=== PATIENT | male | born 1980 | race American Indian/Alaskan Native ===

== ENCOUNTER 2020-08-22 01:59 | Emergency (ER) | payer SELFPAY ==
[2020-08-22] MEDS ORDERED: ONDANSETRON 4 MG/2 ML INJ ONE (16:54)
[2020-08-22] MEDS ORDERED: MORPHINE 4 MG/1 ML INJ ONE ×2 (16:55→20:19)
--- NOTE | 2020-08-22 18:57 | Emergency Department Report ---
ED Chest Pain HPI - General Chief Complaint: Chest Pain PUI?: Yes Source: patient Limitations: No Limitations - History of Present Illness Initial Comments: Patient is 40 years old male with history of hypertension and history of aortic dissection 10 months ago with an open heart surgery at [facility]. Patient presented to the ER stating that he has been having chest pain for the last 2 weeks getting worse. Patient stated that his chest pain is similar to what he have before his surgery. Patient describes chest pain as sharp and pressure radiated to his back. Patient stated that pain worse when he start walking. Patient stated the pain associated with significant shortness of breath avery cially when he start walking. 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 Patient denied any fever or chills. Patient denied any abdominal pain, nausea or vomiting. MD Complaint: chest pain -: week(s) (2) Onset: during rest Pain Location: substernal Pain Radiation: back Severity: moderate Severity scale (0 -10): 6 Quality: heaviness, pressure Consistency: intermittent Improves With: rest Worsens With: exertion - Related Data Allergies Allergy/AdvReac Type Severity Reaction Status Date / Time No Known Allergies Allergy Unverified 08/22/20 20:00 Heart Score - HEART Score History: Moderately suspicious EKG: Non-specific Age: < 45 Risk factors: 1-2 risk factors Troponin: < normal limit HEART Score: 3 - Critical Actions Critical Actions: 0-3 pts:0.9-1.7%risk of adverse cardiac event.Candidate for discharge ED Review of Systems ROS: Stated complaint: Other details as noted in HPI Comment: All other systems reviewed and negative Constitutional: denies: chills, fever Respiratory: shortness of breath, SOB with exertion, SOB at rest. denies: cough, wheezing Cardiovascular: chest pain. denies: palpitations Gastrointestinal: denies: abdominal pain, nausea, vomiting Musculoskeletal: back pain Neurological: denies: headache, weakness, numbness, paresthesias, confusion, abnormal gait ED Physical Exam - General General appearance: alert, in distress - Head Head exam: Present: atraumatic, normocephalic, normal inspection - Eye Eye exam: Present: normal appearance, PERRL - ENT ENT exam: Present: normal exam, normal orophraynx, mucous membranes moist - Neck Neck exam: Present: normal inspection, full ROM. Absent: tenderness, meningismus - Respiratory Respiratory exam: Present: normal lung sounds bilaterally - Cardiovascular Cardiovascular Exam: Present: regular rate, normal rhythm, normal heart sounds - GI/Abdominal GI/Abdominal exam: Present: soft, normal bowel sounds. Absent: distended, tenderness, guarding, rebound, rigid, organomegaly, mass, bruit, pulsatile mass, hernia - Extremities Exam Extremities exam: Present: normal inspection, full ROM, normal capillary refill. Absent: tenderness, pedal edema, joint swelling, calf tenderness - Back Exam Back exam: Present: normal inspection, full ROM. Absent: CVA tenderness (R), CVA tenderness (L) - Neurological Exam Neurological exam: Present: alert, oriented X3, CN II-XII intact, normal gait, reflexes normal. Absent: motor sensory deficit - Psychiatric Psychiatric exam: Present: normal mood - Skin Skin exam: Present: warm, intact, normal color ED Course Vital Signs 08/22/20 08/22/20 08/22/20 20:27 20:30 20:46 Pulse Rate 73 87 67 Respiratory 20 25 H 22 Rate Blood Pressure 179/102 179/102 196/113 Blood Pressure [Right] O2 Sat by Pulse 89 90 89 Oximetry 08/22/20 08/22/20 08/22/20 21:00 21:16 21:30 Pulse Rate 79 86 81 Respiratory 22 22 17 Rate Blood Pressure 193/98 176/92 159/79 Blood Pressure [Right] O2 Sat by Pulse 83 L 83 L 96 Oximetry 08/22/20 08/22/20 08/22/20 21:46 22:00 22:16 Pulse Rate 90 72 70 Respiratory 20 22 20 Rate Blood Pressure 174/94 206/112 170/98 Blood Pressure [Right] O2 Sat by Pulse 95 96 96 Oximetry 08/22/20 08/22/20 08/22/20 22:30 22:46 23:18 Pulse Rate 93 H 71 94 H Respiratory 25 H 11 L 24 Rate Blood Pressure 168/95 187/105 157/79 Blood Pressure [Right] O2 Sat by Pulse 98 95 97 Oximetry 08/22/20 08/22/20 08/22/20 23:30 23:36 23:40 Pulse Rate 69 73 77 Respiratory 19 15 17 Rate Blood Pressure 157/79 192/117 192/117 Blood Pressure [Right] O2 Sat by Pulse 98 98 98 Oximetry 08/22/20 08/22/20 08/22/20 23:46 23:50 23:56 Pulse Rate 70 65 64 Respiratory 18 19 14 Rate Blood Pressure 192/117 192/117 192/117 Blood Pressure [Right] O2 Sat by Pulse 96 96 98 Oximetry 08/23/20 08/23/20 08/23/20 00:00 00:06 00:10 Pulse Rate 64 65 61 Respiratory 21 19 15 Rate Blood Pressure 192/117 183/104 183/104 Blood Pressure [Right] O2 Sat by Pulse 97 97 97 Oximetry 08/23/20 08/23/20 08/23/20 00:16 00:19 00:20 Pulse Rate 65 76 62 Respiratory 21 18 13 Rate Blood Pressure 183/104 183/104 Blood Pressure 183/104 [Right] O2 Sat by Pulse 99 98 98 Oximetry 08/23/20 08/23/20 08/23/20 00:27 00:30 00:35 Pulse Rate 61 71 63 Respiratory 15 17 19 Rate Blood Pressure 157/79 218/135 224/144 Blood Pressure [Right] O2 Sat by Pulse 97 96 93 Oximetry 08/23/20 08/23/20 08/23/20 00:40 00:46 00:50 Pulse Rate 78 58 L 62 Respiratory 13 25 H 13 Rate Blood Pressure 192/117 183/104 196/96 Blood Pressure [Right] O2 Sat by Pulse 94 98 96 Oximetry 08/23/20 08/23/20 08/23/20 00:53 00:56 00:57 Pulse Rate 67 63 68 Respiratory 18 15 16 Rate Blood Pressure 188/102 Blood Pressure 196/96 188/102 [Right] O2 Sat by Pulse 98 96 98 Oximetry 08/23/20 08/23/20 08/23/20 01:00 01:06 01:10 Pulse Rate 63 54 L 61 Respiratory 14 16 14 Rate Blood Pressure 192/111 179/86 187/109 Blood Pressure [Right] O2 Sat by Pulse 96 98 98 Oximetry 08/23/20 08/23/20 08/23/20 01:16 01:20 01:26 Pulse Rate 59 L 57 L 61 Respiratory 15 16 16 Rate Blood Pressure 172/107 172/107 172/107 Blood Pressure [Right] O2 Sat by Pulse 96 99 95 Oximetry 08/23/20 08/23/20 08/23/20 01:30 01:36 01:40 Pulse Rate 57 L 55 L 61 Respiratory 22 18 18 Rate Blood Pressure 172/107 165/104 153/96 Blood Pressure [Right] O2 Sat by Pulse 96 93 95 Oximetry 08/23/20 08/23/20 08/23/20 01:45 01:49 01:50 Pulse Rate 57 L 60 66 Respiratory 15 18 22 Rate Blood Pressure 141/72 135/81 Blood Pressure 141/72 [Right] O2 Sat by Pulse 92 98 89 Oximetry 08/23/20 08/23/20 08/23/20 01:55 02:00 02:06 Pulse Rate 61 58 L 59 L Respiratory 19 15 15 Rate Blood Pressure 141/70 119/64 115/55 Blood Pressure [Right] O2 Sat by Pulse 88 87 87 Oximetry 08/23/20 08/23/20 08/23/20 02:10 02:15 02:20 Pulse Rate 59 L 64 58 L Respiratory 14 16 11 L Rate Blood Pressure 104/52 113/61 109/53 Blood Pressure [Right] O2 Sat by Pulse 88 94 Oximetry 08/23/20 08/23/20 08/23/20 02:25 02:30 02:36 Pulse Rate 60 56 L 57 L Respiratory 21 15 15 Rate Blood Pressure 110/51 99/43 95/38 Blood Pressure [Right] O2 Sat by Pulse 92 94 95 Oximetry 08/23/20 08/23/20 08/23/20 02:40 02:45 02:50 Pulse Rate 59 L 54 L 54 L Respiratory 23 15 15 Rate Blood Pressure 104/61 111/58 106/49 Blood Pressure [Right] O2 Sat by Pulse 95 92 Oximetry 08/23/20 08/23/20 02:55 03:00 Pulse Rate 54 L 59 L Respiratory 13 21 Rate Blood Pressure 94/52 Blood Pressure [Right] O2 Sat by Pulse 94 Oximetry ED Medical Decision Making - Lab Data Result diagrams: 08/23/20 01:44 08/23/20 01:44 - EKG Data -: EKG Interpreted by Me - EKG Data Interpretation: nonspecific ST-T wave felicitas - Radiology Data Radiology results: report reviewed - Medical Decision Making Patient is 40 years old male with history of hypertension and history of aortic dissection 10 months ago with an open heart surgery at [facility]. Patient presented to the ER stating that he has been having chest pain for the last 2 weeks getting worse. Patient stated that his chest pain is similar to what he have before his surgery. Patient describes chest pain as sharp and pressure radiated to his back. Patient stated that pain worse when he start walking. Patient stated the pain associated with significant shortness of breath especially when he start walking. 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 Patient denied any fever or chills. Patient denied any abdominal pain, nausea or vomiting. EKG showed significant ST depression, diffuse. Labs are unremarkable. Patient continue to complain of chest pain. Patient received multiple medication for pain with some improvement. Patient initially given labetalol for his high blood pressure with no significant improvement. Patient started on esmolol drip and that help with his blood pressure. Patient evaluated by me multiple times. CT chest, CT abdomen and pelvis with IV contrast showed aortic dissection extending to the external iliac artery. I discussed the patient with Dr. Nikko alexis, vascular surgeon at [facility]. He accepted the patient to be transferred to [facility]. Critical Care Time: Yes Critical care time in (mins) excluding proc time.: 45 Critical care attestation.: If time is entered above; I have spent that time in minutes in the direct care of this critically ill patient, excluding procedure time. ED Disposition Clinical Impression: Aortic dissection, Chest pain Disposition: [id number] ANOTHER TYPE HLTHCARE Is pt being admited?: No Condition: Stable Instructions: Chest Pain (ED) Referrals: PRIMARY CARE, [Primary Care Provider] - 3-5 Days
--- NOTE | 2020-08-22 19:53 | XRay Report ---
XR chest 1V ap INDICATION / CLINICAL INFORMATION: Chest Pain COMPARISON: None available. FINDINGS: SUPPORT DEVICES: None. HEART / MEDIASTINUM: No significant abnormality. Aortic endograft is visualized. LUNGS / PLEURA: Lungs are clear. Costophrenic sulci are sharp. No pneumothorax. ADDITIONAL FINDINGS: No significant additional findings. IMPRESSION: 1. No acute findings. Signer Name: Sal White MD Signed: 08/22/2020 7:48 PM Workstation Name: [id number]
[2020-08-22] MEDS ORDERED: HYDROmorphone 1 MG/1 ML INJ IV ONE (20:00)
[2020-08-22] MEDS ORDERED: MORPHINE 4 MG/1 ML INJ IV ONE (20:20)
[2020-08-22] MEDS ORDERED: HYDROmorphone 1 MG/1 ML INJ ONE ×2 (21:00→22:45)
[2020-08-22] MEDS ORDERED: FUROSEMIDE 40 MG/4 ML INJ IV ONE (21:01)
[2020-08-22] MEDS ORDERED: HYDROmorphone 2 MG/1 ML INJ IV ONE (23:36)
[2020-08-22] MEDS: ESMOLOL DRIP 2.5 GM/250 ML BAG IV ONE (23:37)
--- NOTE | 2020-08-23 00:21 | Cat Scan Report ---
CT OF THE CHEST, ABDOMEN AND PELVIS WITH INTRAVENOUS CONTRAST INDICATION / CLINICAL INFORMATION: Chest pain. History of aortic dissection. TECHNIQUE: The patient received 100 cc Omnipaque [address] scans at this location are performed using CT dose reduction for ALARA by means of automated exposure control. COMPARISON: None available. FINDINGS: CHEST: There is an endovascular stent graft in the descending thoracic aorta without complication. Th e ascending thoracic aorta is normal in appearance without dissection. There is streak artifact overl liam the great vessels without definite acute abnormality. The pulmonary arteries and coronary vessel s are unremarkable. There is mild bibasilar subsegmental atelectasis. Mild thickening of the wall of the distal descendin g thoracic aorta is probably related to a combination of compression of the false lumen by the stent graft and adjacent atelectasis. There is no evidence of pleural effusion. ABDOMEN: The stent graft terminates near the thoracoabdominal junction. There is a dissection flap be low this level with the false lumen larger than the true lumen and located posteriorly and to the rig ht. The celiac axis arises in the middle of the dissection flap. The SMA arises from the true lumen. The left renal artery arises from the true lumen and the right renal artery arises from the false lum en. The SUMI arises from the true lumen. I do not identify an infarct. The liver, spleen, gallbladder, bile ducts, pancreas, adrenal glands, kidneys and bowel demonstrate n o significant abnormality. No adenopathy is seen. PELVIS: The aortic dissection extends into the left common and external iliac arteries. The right ext ernal iliac artery arises from the true lumen. The dissection terminates in the mid left external liudmila ac artery. There is a small right periumbilical hernia containing small bowel without acute complication. The di stal ureters, urinary bladder and prostate gland are normal. There is internal fixation of the right femur. No abnormal mass or fluid collection is seen. A normal appendix is present and there is no ancelmo dence of diverticulitis. There are mild degenerative changes at the lumbosacral junction. IMPRESSION: 1. Endovascular stent graft in the descending thoracic aorta without complication. 2. Type B aortic dissection extends from the bottom of the stent graft to the level of the mid left e xternal iliac artery. No acute complication. Signer Name: Dorian Blackman MD Signed: 08/23/2020 12:17 AM Workstation Name: [id number]
[2020-08-23] MEDS ORDERED: niCARdipine DRIP 40 MG/200 ML BAG IV ONE (01:12)
[2020-08-23 02:44] LABS: BUN/Creatinine Ratio 15; Basophils # (Auto) 0.1 K/mm3 (0.0-0.1); Basophils % (Auto) 0.5 % (0.0-1.8); Blood Urea Nitrogen 19 mg/dL (9-20); Calcium 9.1 mg/dL (8.4-10.2); Eosinophils % (Auto) 0.3 % (0.0-4.3); Hematocrit 40.7 % (35.5-45.6); Hemoglobin 13.4 gm/dl (11.8-15.2); Hemolysis Index 2; Lymphocytes # (Auto) 1.2 K/mm3 (1.2-5.4); Lymphocytes % (Auto) 9.6 % (13.4-35.0); Mean Corpuscular HGB Conc 33 % (32-34); Mean Corpuscular Volume 87 fl (84-94); Monocytes # (Auto) 0.8 K/mm3 (0.0-0.8); Monocytes % (Auto) 6.2 % (0.0-7.3); Platelet Count 316 K/mm3 (140-440); Red Blood Count 4.67 M/mm3 (3.65-5.03); Red Cell Distribution Width 16.4 % (13.2-15.2)
[2020-08-23 02:48] LABS: Albumin 4.5 g/dL (3.9-5); Bilirubin,Direct 0.3 mg/dL (0-0.2)
[2020-08-23 03:04] LABS: INR 1.06 (0.87-1.13)
[2020-08-23 03:05] LABS: Partial Thromboplastin Time 28.9 Sec. (24.2-36.6)
[2020-08-23] MEDS: ESMOLOL DRIP 2.5 GM/250 ML BAG IV ONE (03:25)
[2020-08-23 03:31] VITALS: BP 94/52
--- NOTE | 2020-08-24 09:56 | XRay Report ---
CHEST 1 VIEW INDICATION / CLINICAL INFORMATION: SOB. COMPARISON: None available. FINDINGS: SUPPORT DEVICES: None. HEART / MEDIASTINUM: Cardia megaly. Hilar and mediastinal contours demonstrate no significant abnorma lity. LUNGS / PLEURA: No significant pulmonary or pleural abnormality. No pneumothorax. ADDITIONAL FINDINGS: Postoperative change of endovascular thoracic aortic repair. IMPRESSION: 1. No acute cardiopulmonary process. Signer Name: Dorian Menjivar MD Signed: 08/22/2020 5:50 PM Workstation Name: [id number]
[2020-08-24 13:42] LABS: BUN/Creatinine Ratio 14; Blood Urea Nitrogen 18 mg/dL (9-20)
[2020-08-24 13:43] LABS: Alanine Aminotransferase 18 units/L (7-56); Bilirubin,Direct 0.2 mg/dL (0-0.2); Calcium 9.3 mg/dL (8.4-10.2)
[2020-08-24 13:44] LABS: Albumin 4.3 g/dL (3.9-5)
== END 2020-08-23 03:26 | disposition other institution (70) ==
LOC: ED 01:59
DX: I71.00 Dissection of unspecified site of aorta (principal)
CPT/HCPCS: 36415; 71045; 71260; 74177; 80048; 80076; 83690; 83880; 84484; 85025; 85379; 85610; 85730; 93005; 96365; 96366; 96375; 99285; J1170; J1940; J2270; J2405; Q9967

== ENCOUNTER 2021-05-05 11:41 | Emergency (ER) | payer OTHER, SELFPAY ==
[2021-05-05] MEDS ORDERED: ASPIRIN 325 MG TAB PO ONE (11:58)
--- NOTE | 2021-05-05 12:06 | Event Note ---
ED Screening Note ED Screening Note: Presents for shortness of breath and chest pain that began 2 to 3 days ago He states he has been having difficulty controlling his blood pressure He states that 7 AM he took his lisinopril and carvedilol and 80 mg of Lasix but continued to have elevated blood pressure Patient has a history of aortic dissection and had surgery at [place] in 2019 Also has a history of CHF This initial assessment/diagnostic orders/clinical plan/treatment(s) is/are subject to change based on patients health status, clinical progression and re- assessment by fellow clinical providers in the ED. Further treatment and workup at subsequent clinical providers discretion. Patient/guardian urged not to elope from the ED as their condition may be serious if not clinically assessed and managed. Initial orders include: Chest pain protocol Main ED due to high risk chest pain
--- NOTE | 2021-05-05 12:36 | XRay Report ---
CHEST 1 VIEW 05/05/2021 12:29 PM INDICATION / CLINICAL INFORMATION: Chest Pain. COMPARISON: 08/22/20. FINDINGS: SUPPORT DEVICES: None. HEART / MEDIASTINUM: Again noted are a median sternotomy, mild cardiomegaly and an endoluminal stent graft involving the descending thoracic aorta. Pulmonary vasculature is normal. There is no evidence of aortic aneurysm. LUNGS / PLEURA: No significant pulmonary or pleural abnormality. No pneumothorax. ADDITIONAL FINDINGS: No significant additional findings. IMPRESSION: No acute abnormality or significant change. Signer Name: Dorian Blackman MD Signed: 05/05/2021 12:32 PM Workstation Name: [id number]
--- NOTE | 2021-05-05 12:44 | Emergency Department Report ---
ED Chest Pain HPI - General Chief Complaint: Chest Pain Stated Complaint: HIGH BLOOD PRESSURE, SHORT OF BREATH Time Seen by Provider: 05/05/21 12:02 Source: patient Mode of arrival: Ambulatory Limitations: No Limitations - History of Present Illness Initial Comments: 41-year-old male, history of hypertension, aortic dissection status post repair in 2019, CHF, presents to ED with chest pain, shortness of breath, elevated blood pressure. Patient states over the last week he has been experiencing some dyspnea on exertion and also orthopnea. Patient states his feet and ankles are swollen as well. Patient states over the last couple of days his blood pressure has been elevated, despite compliance with BP meds. He also reports substernal chest pressure over the last few days. Patient states today his systolic blood pressure was in the 200s and his chest pressure became worse, so he decided to come to the ER. Patient denies any cough or fever. Patient states the pain that he is feeling does not feel like what he experienced with his previous aortic dissection. Patient states he feels like he has fluid on his lungs. He denies any drug use other than marijuana. Patient reports he has not yet received his COVID-19 vaccine. Complaint: chest pain -: days(s) (2) Onset: during rest Pain Location: substernal Severity: moderate Severity scale (0 -10): 7 Quality: pressure Consistency: intermittent Improves With: nothing Worsens With: exertion re: dyspnea. denies: nausea, vomting, diaphoresis Other Symptoms: leg swelling. denies: cough, fever - Related Data Previous Rx's Medication Instructions Recorded Last Taken Type Azithromycin [Zithromax TAB] 250 mg PO QDAY #4 tablet 05/05/21 Unknown Rx Dexamethasone [Decadron] 6 mg PO QDAY #4 tablet 05/05/21 Unknown Rx Allergies Allergy/AdvReac Type Severity Reaction Status Date / Time No Known Allergies Allergy Unverified 08/22/20 20:00 Heart Score - HEART Score History: Slightly suspicious EKG: Non-specific Age: < 45 Risk factors: 1-2 risk factors Troponin: < normal limit HEART Score: 2 - EKG Read Time Time EKG Completed: 12:20 EKG Read Time: 12:26 ED Review of Systems ROS: Stated complaint: HIGH BLOOD PRESSURE, SHORT OF BREATH Other details as noted in HPI Comment: All other systems reviewed and negative Constitutional: denies: chills, fever Respiratory: orthopnea, SOB with exertion. denies: cough Cardiovascular: chest pain Gastrointestinal: denies: abdominal pain, nausea, vomiting Musculoskeletal: denies: back pain ED Past Medical Hx - Past Medical History Previous Medical History?: Yes Hx Hypertension: Yes Additional medical history: AAA dissection - Surgical History Past Surgical History?: Yes Hx Coronary Stent: Yes Additional Surgical History: abdominal aortic aneurysm repair - Medications Home Medications: Home Medications Medication Instructions Recorded Confirmed Last Taken Type Azithromycin [Zithromax TAB] 250 mg PO QDAY #4 tablet 05/05/21 Unknown Rx Dexamethasone [Decadron] 6 mg PO QDAY #4 tablet 05/05/21 Unknown Rx ED Physical Exam - General Limitations: No Limitations General appearance: alert, in no apparent distress - Eye Eye exam: Present: normal appearance, EOMI - ENT ENT exam: Present: mucous membranes moist - Neck Neck exam: Present: normal inspection - Respiratory Respiratory exam: Present: rales (Scant rales in the bases) - Cardiovascular Cardiovascular Exam: Present: regular rate, normal rhythm - GI/Abdominal GI/Abdominal exam: Present: soft. Absent: distended, tenderness - Extremities Exam Extremities exam: Present: normal inspection, pedal edema (trace) - Neurological Exam Neurological exam: Present: alert, oriented X3 - Psychiatric Psychiatric exam: Present: normal affect, normal mood - Skin Skin exam: Present: warm, dry, intact, normal color ED Course Vital Signs 05/05/21 05/05/21 05/05/21 11:57 12:17 12:31 Temperature 99.3 F Pulse Rate 96 H 94 H 94 H Respiratory 28 H 25 H 13 Rate Blood Pressure 158/84 Blood Pressure 216/107 [Right] O2 Sat by Pulse 95 94 95 Oximetry 05/05/21 05/05/21 05/05/21 12:45 12:47 12:51 Temperature Pulse Rate 93 H 96 H 88 Respiratory 14 Rate Blood Pressure 162/94 162/94 Blood Pressure [Right] O2 Sat by Pulse 95 Oximetry 05/05/21 05/05/21 05/05/21 13:01 13:15 13:31 Temperature Pulse Rate 103 H 88 82 Respiratory 17 17 25 H Rate Blood Pressure 134/82 128/50 131/51 Blood Pressure [Right] O2 Sat by Pulse 93 94 95 Oximetry 05/05/21 05/05/21 05/05/21 13:45 16:31 17:03 Temperature Pulse Rate 89 94 H Respiratory 15 16 Rate Blood Pressure 131/51 205/124 Blood Pressure 168/100 [Right] O2 Sat by Pulse 94 96 95 Oximetry ED Medical Decision Making - Lab Data Result diagrams: 05/05/21 12:35 05/05/21 12:35 - EKG Data -: EKG Interpreted by Ok EKG shows normal: sinus rhythm, QRS complexes Rate: normal - EKG Data When compared to previous EKG there are: no significant change (Compared to 07/2020) Interpretation: nonspecific ST-T wave felicitas, LVH, other (Long QT, anterior ST elevation secondary to LVH) - Radiology Data Radiology results: report reviewed, image reviewed - Medical Decision Making 41-year-old male presents to ED with chest pain, shortness of breath, elevated blood pressure. History of aortic dissection status post repair. CTA chest abdomen pelvis shows no evidence of new aortic pathology. EKG is unchanged from previous. Troponin is negative x2. Chest x-ray was normal, however CTA chest does show evidence of patchy multifocal airspace opacities, possible Covid pneumonia. Patient is unvaccinated. At rest O2 sats are normal. With ambulation, O2 sats did not drop below 92%. He is in no respiratory distress. Patient given Rocephin, azithromycin, Decadron here in the ED, in addition to Lasix and labetalol. BP is improved, patient will be discharged at this time. He has been advised to obtain outpatient COVID-19 testing and to quarantine as necessary. He will be discharged with prescriptions. Outpatient follow-up advised, return precautions given. - Differential Diagnosis CHF, ACS, pneumonia, aortic dissection Critical care attestation.: If time is entered above; I have spent that time in minutes in the direct care of this critically ill patient, excluding procedure time. ED Disposition Clinical Impression: Uncontrolled hypertension, Suspected COVID-19 virus infection, Pneumonia Disposition: - TO HOME OR SELFCARE Is pt being admited?: No Condition: Stable Instructions: COVID-19, Community-Acquired Pneumonia, Adult, Bacterial Pneumonia (ED), Hypertension (ED) Additional Instructions: Please obtain outpatient COVID-19 testing. Quarantine as necessary. Prescriptions: Dexamethasone [Decadron] 6 mg PO QDAY #4 tablet Azithromycin [Zithromax TAB] 250 mg PO QDAY #4 tablet Referrals: PRIMARY CARE, [Primary Care Provider] - 3-5 Days
[2021-05-05] MEDS: NITROGLYCERIN 0.4 MG TAB SUBL SL PRN ×2 (12:47→12:51)
[2021-05-05 13:10] LABS: Alanine Aminotransferase 19 units/L (7-56); Albumin 4.4 g/dL (3.9-5); BUN/Creatinine Ratio 11; Blood Urea Nitrogen 12 mg/dL (9-20); Calcium 9.3 mg/dL (8.4-10.2); Hemolysis Index 7
[2021-05-05 13:36] LABS: Basophils # (Auto) 0.1 K/mm3 (0.0-0.1); Eosinophils % (Auto) 0.2 % (0.0-4.3); Hematocrit 44.6 % (35.5-45.6); Hemoglobin 14.5 gm/dl (11.8-15.2); Lymphocytes # (Auto) 1.3 K/mm3 (1.2-5.4); Mean Corpuscular HGB Conc 33 % (32-34); Mean Corpuscular Volume 88 fl (84-94); Monocytes # (Auto) 0.7 K/mm3 (0.0-0.8); Monocytes % (Auto) 5.5 % (0.0-7.3); Platelet Count 284 K/mm3 (140-440); Red Blood Count 5.04 M/mm3 (3.65-5.03); Red Cell Distribution Width 15.5 % (13.2-15.2)
--- NOTE | 2021-05-05 14:34 | Cat Scan Report ---
CTA chest, abdomen, and pelvis with contrast INDICATION : chest pain, SOB; hx CHF, aortic dissection OMNIPAQUE 350 100ML. TECHNIQUE: Axial imaging performed through the chest, abdomen, and pelvis, with contrast bolus timin g set to maximize opacification of the aorta. 3-plane MIP reformatted images were obtained. All CT s cans at this location are performed using CT dose reduction for ALARA by means of automated exposure control. 100 mL of intravenous contrast administered. 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 The graft is patent with no complication identified. No endole ak. There is a thin aortic dissection with some residual flow within the false lumen originating near the level of the mid thoracic aorta. There is a small thoracic vertebral artery which seems to feed this region as seen on image #336 of series #4. The true lumen of the dissection contributes blood flow to the SMA the left renal artery, SUMI, right common iliac artery, and a portion of the left common and external iliac arteries. The false lumen vidal pplies the celiac axis and to right-sided renal arteries, as well as at least 50% of the left common and external iliac arteries. There is no stranding surrounding the aorta to suggest a leak. There is mild ectasia of the distal in frarenal abdominal aorta which is still not aneurysmal but does not demonstrate normal typical distal tapering. Heart size is normal. There is no acute abnormality involving the proximal thoracic aorta or the aort ic arch. Heart size is normal. Chest/bones: Patchy multifocal airspace opacities are present throughout the lungs some of which joel ears slightly nodular especially in the right upper lobe. No dense consolidation or pleural effusion identified. There are degenerative changes in the spine and pelvis with no acute osseous abnormality identified. Sternotomy changes are present. Right femoral neck fixation is present with degenerative changes in both hips. Abdomen/pelvis: The liver, gallbladder, spleen, pancreas, adrenals, kidneys, and proximal GI tract a ppear unremarkable. Urinary bladder and prostate are normal with no pelvic free fluid or acute colonic abnormality identi fied. The appendix is normal. IMPRESSION: 1. Thoracic dissection repair and residual dissection as outlined above with no acute vascular abnor mality identified. 2. Patchy multifocal groundglass airspace disease in the lungs with a small amount of nodularity the right upper lobe. Findings are nonspecific but can be seen with an atypical etiology such as Covid p neumonia. Recommend appropriate testing and follow-up to ensure resolution. Signer Name: Benjamin Spears MD Signed: 05/05/2021 2:29 PM Workstation Name: [id number]
--- NOTE | 2021-05-05 14:50 | Cat Scan Report ---
Please see combined report from the same date dictated by Dr. Spears. Signer Name: Dorian Blackman MD Signed: 05/05/2021 2:45 PM Workstation Name: [id number]
[2021-05-05] MEDS ORDERED: FUROSEMIDE 40 MG/4 ML INJ IV ONE (15:08)
[2021-05-05] MEDS ORDERED: AZITHROMYCIN 250 MG TAB PO ONE (15:11)
[2021-05-05] MEDS ORDERED: cefTRIAXone/NS 1 GM/50 ML 1 GM/50 ML BAG IV ONE (15:11)
[2021-05-05] MEDS ORDERED: DEXAMETHASONE 4 MG TAB PO ONE (16:10)
[2021-05-05 17:04] VITALS: BP 168/100
--- NOTE | 2021-05-07 17:53 | Electrocardiograph Report ---
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
== END 2021-05-05 17:11 | disposition home or self-care (01) ==
LOC: ED 11:41
DX: J18.9 Pneumonia, unspecified organism (principal); I11.0 Hypertensive heart disease with heart failure; I50.9 Heart failure, unspecified; Z79.899 Other long term (current) drug therapy; Z98.890 Other specified postprocedural states; Z20.822 Contact with and (suspected) exposure to COVID-19
CPT/HCPCS: 36415; 71045; 71275; 74174; 80053; 83880; 84484; 85025; 93005; 96365; 96375; 99284; J0696; J1940; J8540; Q9967